=== PATIENT | male | born 1955 | race Caucasian/White ===

== ENCOUNTER 2017-01-13 09:17 | Day surgery (SDC) | payer MEDICAID ==
[~2017-01-13] VITALS: Ht 195.6 cm; Wt 121.6 kg
[2017-01-13 11:06] LABS: GLUCOSE CSF 66 mg/dL (41-75)
== END 2017-01-13 14:30 | disposition home or self-care (01) ==
LOC: RADANGIO 09:17 → EDSTATUS 09:17 → RADANGIO 14:30
PROVIDERS: ATTEND Internal Medicine
DX: G35 Multiple sclerosis (principal)
CPT/HCPCS: 62270; 77003; 82040; 82042; 82784; 82945; 83873; 83916; 84157; 89050